=== PATIENT | female | born 1955 | race Two or more races ===

== ENCOUNTER 2022-06-22 08:49 | Emergency (ER) | payer OTHER ==
[2022-06-22 08:52] VITALS: BP 154/74; PULSE 104; RESP 18; TEMP 98.1; BMI 25.9
[2022-06-22] MEDS ORDERED: ACETAMINOPHEN 500 MG TABLET (FP) PO ONE (11:18)
[2022-06-22] MEDS ORDERED: ACETAMINOPHEN 325 MG TABLET (FP) ONE (11:29)
[2022-06-22] MEDS ORDERED: LIDOCAINE 5% TOPICAL PATCH TP ONE (11:34)
[2022-06-22] MEDS ORDERED: LIDOCAINE 5% TOPICAL PATCH ONE ×2 (11:36→11:56)
[2022-06-22] MEDS ORDERED: IBUPROFEN 400 MG TABLET (FP) PO ONE ×3 (13:34→13:40)
[2022-06-22] MEDS ORDERED: LIDOCAINE PATCH REMOVAL MC ONE (22:00)
== END 2022-06-22 14:41 | disposition home or self-care (01) ==
LOC: JER 08:49
DX: M25.561 Pain in right knee (principal); M71.21 Synovial cyst of popliteal space [Baker], right knee
CPT/HCPCS: 73562-TC-RT-FY; 93971-TC; 99284-25